=== PATIENT | male | born 1975 | race Caucasian/White ===

== ENCOUNTER 2016-07-26 12:34 | Emergency (ER) | payer OTHER ==
[~2016-07-26 12:34] MED LIST: ASAB PO; ATIVAN2 MG PO; COZ50 PO; KLONO2 PO; KLOR-CON M2020 MEQ PO; LEXAPRO10 PO; NORCO1 TAB PO; PRIN20 PO
[2016-07-26 12:43] LABS: BASOPHILS 0.3 %; BASOPHILS ABSOLUTE 0.02 10/3/uL (0.0-0.16); EOSINOPHILS 3.3 %; EOSINOPHILS ABSOLUTE 0.21 10/3/uL (0.0-0.53); HEMATOCRIT 41.7 % (40.0-51.0); HEMOGLOBIN 14.9 g/dL (13.6-17.8); IMMATURE GRANULOCYTES 0.3 %; IMMATURE GRANULOCYTES ABSOLUTE 0.02 10/3/uL (0.0-0.11); LYMPHOCYTES 35.5 %; LYMPHOCYTES ABSOLUTE 2.26 10/3/uL (0.67-4.30); MEAN CORPUS HGB CONC 35.7 g/dL (32.0-36.0); MEAN CORPUSCULAR HEMOGLOB 30.7 pg (26.0-34.0); MEAN CORPUSCULAR VOLUME 85.8 fL (80-100); MEAN PLATELET VOLUME 9.5 fL (9.2-13.0); MONOCYTES 7.8 %; NEUTROPHILS 52.8 %; NEUTROPHILS ABSOLUTE 3.36 10/3/uL (2.02-8.40); PLATELET COUNT 249 10/3/uL (150-400); RBC DISTRIBUTION WIDTH 13.4 % (12.0-16.0); RED CELL COUNT 4.86 10/6/uL (4.7-6.1); WHITE BLOOD CELLS 6.4 10/3/uL (4.5-10.5)
[2016-07-26 12:44] LABS: MANUAL DIFF NO %
[2016-07-26 12:50] LABS: PARTIAL THROMBO TIME 29.8 SEC (22.5-37.2); PROTIME (NOT ORD) 13.5 SEC (12.0-14.5)
[2016-07-26 13:01] LABS: CALCIUM, SERUM 8.7 MG/DL (8.5-10.4); CHEST PAIN PROFILE TAT 0 Hrs 24 Mins; CHLORIDE, SERUM 104 MMOL/L (96-112); CO2 (CARBON DIOXIDE) 29 MMOL/L (24-34); CREATININE 0.87 MG/DL (0.70-1.30); GFR AFRICAN AMERICAN 126 ML/MIN (>=60); GFR NON AFRICAN AMERICAN 109 ML/MIN (>=60); GLUCOSE, SERUM 100 MG/DL (60-99); POTASSIUM, SERUM 3.4 MMOL/L (3.5-5.3); SODIUM, SERUM 141 MMOL/L (135-148); TROPONIN I <0.02 NG/ML (<0.05)
[2016-07-26 13:04] LABS: BUN (BLOOD UREA NITROGEN) 8 MG/DL (6-23)
== END 2016-07-26 14:27 | disposition home or self-care (01) ==
LOC: ER 12:34
PROVIDERS: Hospitalist
DX: R42 Dizziness and giddiness (principal); I10 Essential (primary) hypertension; Z95.0 Presence of cardiac pacemaker; Z88.6 Allergy status to analgesic agent; Z88.8 Allergy status to other drugs, medicaments and biological substances; Z79.82 Long term (current) use of aspirin; Z79.899 Other long term (current) drug therapy
CPT/HCPCS: 80048; 83735; 84484; 85025; 85610; 85730; 93005; 99284

== ENCOUNTER 2016-07-26 23:50 | Observation (INO) | payer OTHER ==
--- NOTE | ~2016-07-26 | HP ---
History And Physical [facility] [id number] [place] [address] NAME: ELSI BARRY : 79 STATUS : ADM Rosa PAT#: [id number] AGE: 41 ADM/REG DATE : 07/26/16 MR#: [id number] REPORT SERV DATE: 07/27/16 DICTATED BY: GUILLERMO DEGROOT DATE: 07/27/16 REPORT STATUS : Draft TRANSCRIBED BY: MODL DATE: 07/27/16 DATE OF ADMISSION: 07/26/2016 INDICATION: Chest pain. HISTORY OF PRESENT ILLNESS: Mr. Elsi Barry presented to the emergency room last night. He was asleep. He woke with a cramping chest sensation associated with increased heart rate as well as some shortness of breath. The discomfort went to his back for a period of time. This spontaneously resolved. He was nervous and presented to the emergency room. In the emergency room, he was found to have EKG with nonspecific T-wave changes and a negative troponin and was admitted to the Chest Pain Observation Unit. Currently, the patient reports some very mild achy sensation in his chest, but much improved. He also reports some symptoms possibly consistent with vertigo; reports when he moves side to side, he gets a little bit of dizziness, this has been ongoing for a while. PAST MEDICAL HISTORY: Notable for syncope in 2014. The patient eventually ended up with a dual-chamber [employer] pacemaker. At that time, he had an echocardiogram with normal ejection fraction and reported arteriogram showed normal coronary arteries, but the report was never officially obtained. He has history of hypertension, for which he takes an ARB. He has dyslipidemia, obesity, and anxiety. PRESENT MEDICATIONS: Aspirin, Lexapro, and Cozaar. ALLERGIES: TRAMADOL AND LISINOPRIL, WHICH CAUSES COUGH. SOCIAL HISTORY: No smoking. No alcohol. FAMILY HISTORY: Known for coronary artery disease. REVIEW OF SYSTEMS: As per the HPI. Otherwise, all other review of systems negative. PHYSICAL EXAMINATION: VITAL SIGNS: Blood pressure 127/72, pulse 72, respiratory rate is 18. GENERAL: Appears stated age, no distress. EYES: Sclerae anicteric, no arcus senilis. MOUTH: Oral mucosa moist, lips acyanotic. NECK: Jugular venous pressure normal, no carotid bruits. LUNGS: Clear to auscultation bilaterally, normal inspiratory effort. CARDIAC: Regular rate and rhythm, no murmurs, gallops or rubs. ABDOMEN: Soft, nondistended, nontender. EXTREMITIES: No edema. SKIN: Warm and dry. NEURO/PSYCH: Alert and oriented, nonfocal, mood appropriate. LABORATORY DATA: Sodium 143, potassium 3.2, creatinine 0.8. Hemoglobin 15. Troponin History And Physical [address] [address] NAME: ELSI BARRY : 79 STATUS : ADM Rosa PAT#: [id number] AGE: 41 ADM/REG DATE : 07/26/16 MR#: [id number] REPORT SERV DATE: 07/27/16 DICTATED BY: GUILLERMO DEGROOT DATE: 07/27/16 REPORT STATUS : Draft TRANSCRIBED BY: SANTI DATE: 07/27/16 negative x2. EKG is sinus rhythm with nonspecific T-wave changes. Chest x-ray is no acute process. IMPRESSION: 1. Chest pain syndrome. 2. Palpitation. 3. History of sinus node dysfunction, status post pacemaker. 4. History of anxiety. 5. Hypokalemia. RECOMMENDATION: Replace potassium and obtain nuclear stress testing to assess for ischemia. Obtain nuclear imaging given abnormal baseline ECG. Check D-dimer; if abnormal, obtain CTA chest. Check pacemaker. Plan was discussed with the patient. All questions answered. LE/SANTI Guillermo Degroot M.D. / [id number] CC: Stacy Paulino, MSN, EXPLOSIVE ORDNANCE TECHNICIAN-BC
[2016-07-26 23:40] LABS: BASOPHILS 0.3 %; BASOPHILS ABSOLUTE 0.02 10/3/uL (0.0-0.16); EOSINOPHILS ABSOLUTE 0.19 10/3/uL (0.0-0.53); HEMATOCRIT 42.9 % (40.0-51.0); HEMOGLOBIN 15.3 g/dL (13.6-17.8); IMMATURE GRANULOCYTES 0.3 %; IMMATURE GRANULOCYTES ABSOLUTE 0.02 10/3/uL (0.0-0.11); LYMPHOCYTES 39.2 %; LYMPHOCYTES ABSOLUTE 2.52 10/3/uL (0.67-4.30); MEAN CORPUS HGB CONC 35.7 g/dL (32.0-36.0); MEAN CORPUSCULAR HEMOGLOB 30.6 pg (26.0-34.0); MEAN CORPUSCULAR VOLUME 85.8 fL (80-100); MEAN PLATELET VOLUME 9.6 fL (9.2-13.0); MONOCYTES 7.8 %; NEUTROPHILS 49.4 %; NEUTROPHILS ABSOLUTE 3.18 10/3/uL (2.02-8.40); PLATELET COUNT 285 10/3/uL (150-400); RBC DISTRIBUTION WIDTH 13.3 % (12.0-16.0); WHITE BLOOD CELLS 6.4 10/3/uL (4.5-10.5)
[2016-07-26 23:41] LABS: ER CBC TAT 0 Hrs 05 MinsNP; MANUAL DIFF NO %
[2016-07-26 23:47] LABS: PARTIAL THROMBO TIME 28.6 SEC (22.5-37.2)
[2016-07-26 23:55] LABS: BUN (BLOOD UREA NITROGEN) 9 MG/DL (6-23); CALCIUM, SERUM 8.5 MG/DL (8.5-10.4); CHEST PAIN PROFILE TAT 0 Hrs 20 Mins; CHLORIDE, SERUM 103 MMOL/L (96-112); CO2 (CARBON DIOXIDE) 30 MMOL/L (24-34); CREATININE 0.82 MG/DL (0.70-1.30); GFR AFRICAN AMERICAN 129 ML/MIN (>=60); GFR NON AFRICAN AMERICAN 111 ML/MIN (>=60); GLUCOSE, SERUM 99 MG/DL (60-99); POTASSIUM, SERUM 3.2 MMOL/L (3.5-5.3); SODIUM, SERUM 143 MMOL/L (135-148); TROPONIN I <0.02 NG/ML (<0.05)
[2016-07-27 05:14] LABS: TROPONIN I <0.02 NG/ML (<0.05)
[2016-07-27 06:34] LABS: POTASSIUM, SERUM 3.5 MMOL/L (3.5-5.3)
== END 2016-07-27 15:10 | disposition home or self-care (01) ==
LOC: ER 23:50 → CDU1 23:59 → CDU2 07-27 03:50
PROVIDERS: Clinical Nurse Specialist; Specialist
DX: R07.9 Chest pain, unspecified (principal); I10 Essential (primary) hypertension; E78.5 Hyperlipidemia, unspecified; E87.6 Hypokalemia; F41.9 Anxiety disorder, unspecified; E78.00 Pure hypercholesterolemia, unspecified; R00.2 Palpitations; E66.9 Obesity, unspecified; Z79.82 Long term (current) use of aspirin; Z79.899 Other long term (current) drug therapy; Z88.8 Allergy status to other drugs, medicaments and biological substances; Z87.442 Personal history of urinary calculi; Z98.890 Other specified postprocedural states
CPT/HCPCS: 71020; 78452; 80048; 83735; 84132; 84484; 85025; 85379; 85610; 85730; 93005; 93017; 99285; A9270-GY; A9502; G0378